=== PATIENT | female | born 1980 | race Caucasian/White ===

== ENCOUNTER → 2017-04-08 | Outpatient (CLI) | payer OTHER ==
[~2017-04-08] MED LIST: ATIVAN0.5 MG PO; ESTRADIOL 1 MG T1 M1 PO; HYDROCODONE-AP1 EAC6 PO; LEXAPRO20 MG; NEURONTIN600 MG; PRILOSEC 20 MG20 MG; SCOPOLAMINE1 EACH TRANSDERM; SUBOXONE 8 MG-1 EAC3 SL
== END ==
LOC: M.ULTRA 10:30
DX: D25.9 Leiomyoma of uterus, unspecified (principal); Z90.721 Acquired absence of ovaries, unilateral; Z87.42 Personal history of other diseases of the female genital tract; Z86.018 Personal history of other benign neoplasm

== ENCOUNTER 2017-04-29 06:18 | Inpatient (IN) | payer OTHER ==
[~2017-04-29] VITALS: Ht 162.6 cm; Wt 113.4 kg
--- NOTE | ~2017-04-29 | OP ---
[address] [address] OPERATIVE REPORT Name: JEANNIE AMBRIZ Room: [address] IN M.R.#: [id number] Admission: 04/29/17 Attend Phys: Elisabet Carrasquillo Discharge: 05/01/17 Date of : 82 Report #: [id number] THIS REPORT FOR: //name// Please see the post operative note for details of the operative report. By: 0640Medical Records Staff JOSE /MARISOL
[~2017-04-29 06:18] MED LIST changes: -ESTRADIOL 1 MG T1 M1 PO; -HYDROCODONE-AP1 EAC6 PO; -SCOPOLAMINE1 EACH TRANSDERM
[2017-04-29 11:37] LABS: HEMATOCRIT 39.9 % (37.0-47.0); HEMOGLOBIN 13.4 gm/dL (12.0-15.0); MCH 29.2 pg (26.0-34.0); MCHC 33.7 g/dL (28.0-37.0); MCV 86.8 fL (80.0-100.0); MPV 6.8 fl. (7.2-11.1); RBC 4.6 mil/uL (4.20-5.00); RDW-CV 13.7 % (10.5-14.5); WBC 7.4 thou/uL (4.0-11.0)
[2017-04-29 11:57] VITALS: BP 121/60
[2017-04-29 19:30] VITALS: BP 154/99
[2017-04-29 23:35] VITALS: BP 118/69
[2017-04-30 04:15] LABS: HEMATOCRIT 35.5 % (37.0-47.0); MCH 29.5 pg (26.0-34.0); MCHC 33.7 g/dL (28.0-37.0); MCV 87.5 fL (80.0-100.0); RBC 4.06 mil/uL (4.20-5.00); RDW-CV 13.7 % (10.5-14.5); WBC 17.1 thou/uL (4.0-11.0)
[2017-04-30 04:16] VITALS: BP 108/62
[2017-04-30 04:28] LABS: CALCIUM 7.9 mg/dL (8.5-10.1); CREATININE 0.8 mg/dL (0.6-1.3); POTASSIUM 4.2 mmol/L (3.5-5.1)
[2017-04-30 07:56] VITALS: BP 124/68
--- NOTE | 2017-04-30 08:51 | NUR ---
PATIENT WAS ADMITTED TO ROOM 116 AT APPROXIMATELY 1940. PATIENT IS ALERT AND ORIENTED X 4. VSS ON 2L 02 VIA NASAL CANNULA AND CONTINUOUS PULSE OXIMETRY. PATIENT IS COMPLAINING OF ABDOMINAL PAIN FROM SURGERY. HOGSHEAD BUILDER PUMP STARTED INFUSING DILAUDID. PATIENT INSTRUCTED ON HOW TO USE THE BUTTON TO HELP GIVE DOSE OF PAIN MEDICATION. ABDOMINAL DRESSING HAS REMAINED C/D/I THROUGHOUT THE NIGHT. HEATING PAD APPLIED TO ABDOMINAL AREA. SURINDER DRAIN IN PLACE WITH MODERATE AMOUNT OF SEROSANGINOUS DRAINAGE. AGUIRRE TO DEPENDENT DRAINAGE WITH CLEAR/YELLOW URINE OUTPUT. PATIENT HAS REMAINED NPO WITH ONLY ICE CHIPS AND SIPS OF CLEAR LIQUIDS. IV IN RIGHT HAND- D5 1/2 NS @ 125ML/HR. PATIENT INSTRUCTED TO USE CALL LIGHT WHEN NEEDING ASSISTANCE. HOURLY ROUNDS MADE. WILL CONTINUE WITH PLAN OF CARE AND NURSING TO MONITOR.
[2017-04-30 15:44] VITALS: BP 130/66
--- NOTE | 2017-04-30 17:52 | NUR ---
ASSUMED CARE OF PATIENT AFTER MORNING REPORT. ALERT AND ORIENTED X4. ASSESSMENT COMPLETED AND CHARTED. VSS ON 2 LITERS 02. PATINT HAS HAD NO COMPLAINTS OF NAUSEA THIS SHIFT. PAIN HAS BEEN MANAGED WITH TELECOMMUNICATIONS CABLE JOINTER PUMP AND ORAL PAIN MEDICATION. DIET ADVANCED FROM NPO TO CLEARS TO REGULAR AND TOLERATED WELL. PATIENT RESTING COMFORTABLY IN BED AT THIS TIME, RATING PAIN AT A 2 ON A SCALE OF 0-10. HOURLY ROUNDS HAVE BEEN MAINTAINED. CALL LIGHT IS WITHIN REACH. NURSING WILL CONTINUE TO MONITOR.
[2017-04-30 20:00] VITALS: BP 110/70
[2017-05-01 00:11] VITALS: BP 109/58
--- NOTE | 2017-05-01 04:47 | NUR ---
PATIENT ORIENTED X4 ON HOURLY ROUNDS. VITALS STABLE. PAIN CONTROLLED WITH PAINT ROLLER COVERMAKER PUMP. UP AD ZARINA. VOIDING ADEQUATELY. BM THIS SHIFT. INCISION TO ABDOMEN IS DRY AND INTACT WITH SURINDER DRAIN IN PLACE. WILL CONTINUE TO MONITOR.
[2017-05-01 04:54] VITALS: BP 117/72
[2017-05-01 08:00] VITALS: BP 98/53
[2017-05-01 12:58] VITALS: BP 98/53
[2017-05-01] MEDS ORDERED: SCOPOLAMINE1 EACH TRANSDERM (13:00)
[2017-05-01] MEDS ORDERED: HYDROCODONE-AP1 EAC6 PO (13:02)
[2017-05-01 13:32] VITALS: BP 98/53
[2017-05-01] MEDS ORDERED: ESTRADIOL 1 MG T1 M1 PO (13:39)
--- NOTE | 2017-05-01 15:59 | NUR ---
PATIENT LEFT UNIT AT 1300. ALERT AND ORIENTED X4. UP AD ZARINA IN ROOM. IV'S X2 DC'D. PAIN BEING MANAGED WITH PO PAIN MEDICATION. DENIES NAUSEA. TOLERATING REGULAR DIET. ALL PERSONAL ITEMS LEFT WITH PATIENT. DISCHARGE INSTRUCTIONS SENT WITH PATIENT. SURINDER DRAIN IN PLACE AT DISCHARGE. DRESSING C/D/I. VSS ON ROOM AIR. HOURLY ROUNDS HAVE BEEN MAINTAINED THROUGHOUT SHIFT. LEFT WITH BOYFRIEND VIA CAR.
[2017-05-01 16:03] VITALS: BP 98/53
--- NOTE | 2017-05-02 09:53 | S ---
[place] [address] SURGICAL PATH RPT PROCEDURE Name: JEANNIE GARCIA Room: [address] IN M.R.#: [id number] Admission: 04/29/17 Date of : 82 Discharge: 05/01/17 Report #: [id number] Path Case #: [id number] PATHOLOGY REPORT COLLECTION DATE: 04/29/2017 RECEIVED DATE: 04/30/2017 SUBMITTING PHYS: Dr. Tres Silva OTHER PHYS: Dr. Abbe Leung SPECIMEN(S) RECEIVED: A.Uterus, left fallopian tube and ovary, cervix * * * * * * * * * * * * FINAL DIAGNOSIS: Uterus, left fallopian tube and ovary, cervix: 67 gram uterus (without 15 gram separate cervix and bilateral adnexa) with: Myometrium: - Single intramural leiomyoma and adenomyosis. Endometrium: - Dysynchronous pattern, negative for hyperplasia and atypia. Cervix: - No significant pathologic changes. Left adnexa (15 grams): - Benign ovary with follicular cyst, epithelial inclusion cyst and corpora albicantia and benign fallopian tube including distal fimbriated segment, with evidence of prior ligation including plastic ligation ring. (MARILIN:db; 05/01/2017) PATHOLOGIST: Abdifatah Rogers M.D. REPORT ELECTRONICALLY SIGNED BY: Abdifatah Rogers M.D. DATE/TIME: 05/02/2017 09:52 * * * * * * * * * * * * GROSS PATHOLOGY: The specimen is received in formalin labeled "Jeannie Garcia, uterus, left fallopian tube and ovary, cervix". Received is a 67 g uterine corpus measuring 7.4 x 5.0 x 4.1 cm, 15 g cervical stump, and 15 g detached clinically left adnexa. The uterine serosa is pink-bull in appearance with a slight amount of overlying adhesions. The uterine corpus is opened laterally to reveal a partial pale bull endocervical canal measuring 2.2 cm in length. The endometrial cavity is triangular measuring 3.9 cm in length by 2.4 cm in width. The endometrium is pale blul, glistening in appearance and measures 0.1 [place] [address] SURGICAL PATH RPT PROCEDURE Name: JEANNIE GARCIA Room: [address] IN [facility].#: [id number] Admission: 04/29/17 Date of : 82 Discharge: 05/01/17 Report #: [id number] Path Case #: [id number] in thickness. Sectioning reveals a bull-pink, related myometrium measuring 1.9 cm in thickness and a single intramural fibroid measuring 1.5 cm. The cervical stump measures 3.6 x 2.8 x 2.5 cm. The 0.1 cm cervical os is surrounded by pale bull, smooth ectocervical mucosa. The cervical stump cannot be oriented and one half of the paracervical margin is inked black. Opening the cervical stump reveals a partial endocervical canal measuring 2.6 cm in length. The left adnexa consists of a fimbriated fallopian tube measuring 5.1 cm in length by 0.5 cm in diameter, with a plastic ligation ring present, attached to a 3.2 x 2.6 x 1.7 cm ovary. Sectioning through the fallopian tube reveals a patent lumen. Sectioning through the ovary reveals a single unilocular cystic structure measuring 0.6 cm filled with blood-tinged fluid, as well as multiple corpora lutea ranging in size from 0.3 to 1.1 cm in diameter. The specimen is submitted representatively as follows: A1 cervix A2 opposite cervix A3 anterior endomyometrium A4 posterior endomyometrium A5 detached clinically left adnexa. (CAA; 04/30/2017) CLINICAL HISTORY: Dysmenorrhea INITIAL CPT CODE(S): A; 15796 Professional services performed by [employer] at [facility], [address] [place] [id number]. Technical services performed by [employer] at [address] [place] [address], [address], [place] [address]. [employer] [address] [place] [address] PHONE: [phone] DIRECTOR: Steven Ngo M.D. * * * END OF REPORT * * *
--- NOTE | 2017-05-14 10:21 | H ---
[address] [address] HISTORY AND PHYSICAL Name: JEANNIE AMBRIZ Room: [address] IN M.R.#: [id number] Admission: 04/29/17 Attend Phys: Elisabet Carrasquillo Discharge: 05/01/17 Date of : 82 Report #: [id number] THIS REPORT FOR: //name// CC: Abbe Leung DATE OF SERVICE: 04/29/2017 SUBJECTIVE: The patient presented to my office in March of this year for a well-woman exam and evaluation of a problem with chronic ovarian cysts that are painful and menorrhagia. She states that she has had multiple laparoscopies, a myomectomy, right salpingo-oophorectomy and previous sections. She states that her earliest surgery for ovarian cyst was at age 10. She had long discussions with a physician in [place] about performing hysterectomy and removing remaining ovary, but her surgeon was hesitant to do so because of her young age. She states that the pain with her menses has become much more significant, ranging 8 or 9 on most days. Her menses are now prolonged with flow of 8 or 9 days in length and that this is very tiring for her. She has had multiple medical treatments for her bleeding and does not tolerate oral contraceptives or Depo-Provera. The patient had a tubal ligation and her partner has had a vasectomy. The patient felt it is time to proceed with hysterectomy. 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 She states she has been sober for over a year and is currently on a medication to help with that addiction. She states that she had dental surgery recently and took pain medicine for 1 day and then only took ibuprofen. She is 6, para 2 with 2 living children. Both of those children were delivered by section. PAST MEDICAL HISTORY: Positive for some arthritis. She did have seizure disorders in the past and is known to have hepatitis C. CURRENT MEDICATIONS: Melatonin and Suboxone. ALLERGIES: THE PATIENT STATES SHE IS ALLERGIC TO PENICILLIN. OBJECTIVE: VITAL SIGNS: The patient's blood pressure is 132/80, weight is 119 kilograms (263 pounds). HEENT: Normal. NECK: Supple without adenopathy. LUNGS: Chest is clear to auscultation without rales or rhonchi. HEART: Has a normal sinus rhythm without murmurs or gallops. ABDOMEN: Moderately obese with a slight pannus. [place] [address] HISTORY AND PHYSICAL Name: JEANNIE AMBRIZ Room: [address]#: [id number] Admission: 04/29/17 Attend Phys: Elisabet Carrasquillo Discharge: 05/01/17 Date of : 82 Report #: [id number] guarding. She is diffusely tender across the lower abdomen. No masses are palpable. GENITOURINARY: She has a normal female escutcheon. BUS exam is normal. The vagina is without visible or palpable lesions. The cervix is normal in appearance. Her right adnexa has no masses or fullness. Left adnexa is also without mass, although there is some tenderness. EXTREMITIES: Shows no varicosities or edema. PSYCHIATRIC: The patient has a normal mood and affect and normal thought content. IMAGING: Pelvic ultrasound obtained on 04/08/2017 showed a slightly enlarged uterus measuring 11.2 cm in length. There were 3 masses within the uterus suggestive of fibroids, largest of those measuring 2.9 cm in maximum diameter. The endometrium is 10 mm in thickness and there is some fluid within the endocervical canal. The patient has been noted to have cervical stenosis. No overt pelvic pathology was identified. IMPRESSION: Menorrhagia with increasingly severe dysmenorrhea, cervical stenosis, history of chronic pelvic pain with ovarian cysts, history of narcotic medication abuse. PLAN: Management options were discussed in detail with the patient and her partner on multiple occasions and the patient wants to proceed with hysterectomy and removal of her remaining ovary. Risks of this operation including bleeding, infection, damage to bowel, bladder, blood vessels and other structures were all discussed. Importance of hormone replacement therapy until her anticipated age of menopause was stressed. Questions were encouraged and answered. <ELECTRONICALLY SIGNED> By: Tres Silva MD 05/14/17 1021 1704 [id number] Silva MD /nt
== END 2017-05-01 13:00 | disposition home or self-care (01) | DRG 743 ==
LOC: M.PRE 06:18 → M.TBA 10:57 → M.ORTHSURG 19:28 → M.PRE 05-05 09:56
PROVIDERS: Internal Medicine; Specialist; ADMIT Internal Medicine
PROC: 0UT10ZZ Resection of Left Ovary, Open Approach (ICD-10-PCS; principal; 2017-04-29)
PROC: 0UT90ZZ Resection of Uterus, Open Approach (ICD-10-PCS; principal; 2017-04-29)
PROC: 0UT60ZZ Resection of Left Fallopian Tube, Open Approach (ICD-10-PCS; principal; 2017-04-29)
DX: N94.6 Dysmenorrhea, unspecified (principal); M19.90 Unspecified osteoarthritis, unspecified site; G40.909 Epilepsy, unspecified, not intractable, without status epilepticus; N92.0 Excessive and frequent menstruation with regular cycle; M48.02 Spinal stenosis, cervical region; G89.29 Other chronic pain; N83.209 Unspecified ovarian cyst, unspecified side; F41.9 Anxiety disorder, unspecified; F19.10 Other psychoactive substance abuse, uncomplicated; F32.9 Major depressive disorder, single episode, unspecified; Z79.899 Other long term (current) drug therapy; Z88.5 Allergy status to narcotic agent; Z88.8 Allergy status to other drugs, medicaments and biological substances; Z88.0 Allergy status to penicillin

== ENCOUNTER 2017-09-12 09:56 | Emergency (ER) | payer OTHER ==
[~2017-09-12] VITALS: Ht 160 cm; Wt 127.0 kg
[~2017-09-12 09:56] MED LIST changes: +ESTRADIOL 1 MG T1 M1 PO; +HYDROCODONE-AP1 EAC6 PO; +SCOPOLAMINE1 EACH TRANSDERM
[2017-09-12 10:19] LABS: ABSOLUTE BASOPHILS 0.1 thou/uL (0.0-0.2); ABSOLUTE EOSINOPHILS 0.3 thou/uL (0.0-0.7); ABSOLUTE LYMPHOCYTES 1.8 thou/uL (0.8-5.3); ABSOLUTE MONOCYTES 0.5 thou/uL (0.0-1.2); ABSOLUTE NEUTROPHILS 5.2 thou/uL (1.6-8.1); BASOPHILS 1.1 %; EOSINOPHILS 3.4 %; HEMATOCRIT 40.9 % (37.0-47.0); HEMOGLOBIN 13.6 gm/dL (12.0-15.0); LYMPHOCYTES 22.7 %; MCH 28.6 pg (26.0-34.0); MCHC 33.3 g/dL (28.0-37.0); MCV 85.8 fL (80.0-100.0); MONOCYTES 6.8 %; MPV 7.1 fl. (7.2-11.1); NUCLEATED RBCS 0 /100WBC; PLATELET COUNT* 380 thou/uL (150-400); RBC 4.76 mil/uL (4.20-5.00); RDW-CV 13.7 % (10.5-14.5)
[2017-09-12 10:32] LABS: ANION GAP 8 mmol/L (7-16); BUN 12 mg/dL (7-18); CHLORIDE 101 mmol/L (98-107); CO2 27 mmol/L (21-32); CREATININE 0.7 mg/dL (0.6-1.3); GLUCOSE 117 mg/dL (70-99); POTASSIUM 3.8 mmol/L (3.5-5.1); SODIUM 136 mmol/L (136-145)
[2017-09-12 10:34] LABS: APTT 31.1 Seconds (25.0-31.3); PROTIME 10.1 Seconds (9.20-11.50)
[2017-09-12 10:57] LABS: ALBUMIN 3.5 g/dL (3.4-5.0); ALKALINE PHOSPHATASE 82 U/L (46-116); CK-MB MASS 0.5 ng/mL (<0.5-3.6); LIPASE 138 U/L (73-393); MAGNESIUM 2.1 mg/dL (1.8-2.4); NT-PRO BRAIN NAT PEPTIDE 385 pg/mL (<300); SGOT 16 U/L (15-37); SGPT 17 U/L (30-65); TOTAL BILIRUBIN 0.3 mg/dL (<0.1-1.0); TOTAL PROTEIN 8.2 g/dL (6.4-8.2); TROPONIN-I LEVEL <0.06 ng/mL (<0.06)
[2017-09-12 11:21] VITALS: BP 150/96
--- NOTE | 2017-09-12 16:24 | EKG ---
[place] [address] ELECTROCARDIOGRAM REPORT Name: JEANNIE AMBRIZ [id number] Admission: 09/12/17 Attend Phys: Discharge: 09/12/17 Date of : 82 Report #: [id number] THIS REPORT FOR: //name// [facility] ED Test Date: 2017-09-12 Test Time: 10:00:26 Pat Name: JEANNIE AMBRIZ Department: Room: Gender: F Stock Patch Sawyer: FAUSTINA : 1980 Requested By: Finn Sumner Order Number: [id number] MD: Simon Vance Measurements Intervals [place] Rate: 118 P: 56 [place]: 130 QRS: 64 QRSD: 88 T: 21 QT: 344 QTc: 483 Interpretive Statements Sinus tachycardia Borderline prolonged QT interval Baseline wander in lead(s) II,III,aVF,V4 Compared to ECG 07/15/2015 21:34:23 No significant changes Electronically Signed On 09-12-2017 16:23:49 CDT by Simon Vance [email or web address] <ELECTRONICALLY SIGNED> By: Simon Vance MD, [facility] 09/12/17 1623 1000 1000 Simon Vance MD, [facility] /EPI
== END 2017-09-12 11:22 | disposition home or self-care (01) ==
LOC: M.ERS 09:56
PROVIDERS: Family Medicine
DX: R07.9 Chest pain, unspecified (principal); F41.9 Anxiety disorder, unspecified; F43.10 Post-traumatic stress disorder, unspecified; F17.210 Nicotine dependence, cigarettes, uncomplicated; Z88.5 Allergy status to narcotic agent; Z88.6 Allergy status to analgesic agent; Z88.0 Allergy status to penicillin